=== PATIENT | female | born 1995 | race Two or more races ===

== ENCOUNTER 2016-11-27 15:24 | Inpatient (IN) | payer OTHER ==
[~2016-11-27] VITALS: Ht 162.6 cm; Wt 122.6 kg
[2016-11-27 16:00] VITALS: BP 118/59; PULSE 101; RESP 20; Ht 162.6 cm; Wt 122.6 kg
[2016-11-27 16:36] LABS: URINE BLOOD (Dip) POC Negative (NEGATIVE)
--- NOTE | 2016-11-27 16:48 | RADRPT ---
PROCEDURE: Biophysical profile CLINICAL INDICATION: distress. Spontaneous rupture of membranes. TECHNIQUE: Color and chandler-scale ultrasound images of an intrauterine gestation were obtained. COMPARISON: None FINDINGS: A single live intrauterine gestation is identified in cephalic position with an estimated hear t rate of 144 beats per minute. The placenta is located posteriorly and has a grade of II. The cer vix is closed and measures approximately 2.5 cm in length. No evidence of previa or abruption identi fied. LILLY is 8.0 cm. movement 2/2. tone 2/2. breathing movement 2/2. Qualitative AFV 2/2 Total biophysical profile 01/21 IMPRESSION: 01/21 biophysical profile. Closed cervix measuring 2.5 cm in length. RPTAT: AA .Sancho Hilton MD, MD Date Time Electronically viewed and signed by .Sancho Hilton MD, MD on 11/27/2016 16:48 .P/
[2016-11-27] MEDS ORDERED: LIDOCAINE 1% (MPF) 30 ML INJ INJ PRN (19:00)
[2016-11-27] MEDS: LACTATED RINGER'S 1,000 ML IV SCH ×2 (19:53→22:45)
--- NOTE | 2016-11-27 21:30 | HP ---
Date/Time of Note Date/Time of Note DATE: 11/27/16 TIME: 21:24 OB - History Hx of Present Free Text/Dictation November 27, 2016 Chief Complaint: Rule out PPROM : 1 Para: 0 Care: Good Care Other Concerns: 21-year-old with IUP at 36 weeks was seen to the office today and during obtaining GBS there was a concern for questionable leaking of fluid. She was sent to labor and delivery for rule out PPROM. She denies any decreased movement or vaginal bleeding or contractions. She reports some increased discharge recently. Past Family/Social History * Past Medical, Surgical, Family and Obstetric Histories reviewed from chart. OB Admission Exam Vital Signs Vital Signs Vital Signs Date Time Temp Pulse Resp B/P Pulse Ox O2 Delivery O2 Flow Rate FiO2 11/27/16 16:00 98.2 101 20 118/59 Room Air Physical Exam HEENT: WNL Abdomen: WNL Extremities: Other (Abdomen, gravid, fundal height consistent with gestational age. Sterile speculum examination , negative nitrazine negative pooling, R OM test negative. LILLY: 8. Cervical length 2.5 cm, some deep variables noted down to 60s recurrent, due to recurrent variables decision was made to admit the patient to antepartum testing for observation overnight. LILLY: 8) Cervical Dilatation: None Effacement: 0% Membranes: Intact Heart Rate: 150's Accelerations: Accelerations Present Decelerations: Variable Decelerations Varibility: Moderate Contractions on Admission: None OB Assessment/Plan Other Assessment: IUP at 36 weeks No evidence of PPROM no evidence of labor Recurrent variable decelerations Borderline LILLY. Patient will be admitted overnight for observation to antepartum service Continue Hydration. Repeat LILLY tomorrow Possible DC home tomorrow if tracing reassuring TAYLOR FAIRCHILD MD Nov 27, 2016 21:30
[2016-11-28] MEDS: LACTATED RINGER'S 1,000 ML IV SCH (06:27)
--- NOTE | 2016-11-28 12:26 | RADRPT ---
PROCEDURE: US evaluation of amniotic fluid volume. CLINICAL INDICATION: Decreased amniotic fluid volume. TECHNIQUE: Multiple sonographic images of the gravid uterus were obtained utilizing chandler-scale frandy ging. Sagittal and transverse images were obtained. The images were reviewed on a PACS workstation . LILLY was measured. COMPARISON: 11/27/2016. FINDINGS: There is a single live intrauterine . heart rate is 146 beats per minute. Position is cephalic. Placenta is posterior grade II with no abruption or previa. LILLY is 16.6 cm. (Normal = 5-20 cm.) IMPRESSION: 1. LILLY is 16.6 cm. RPTAT: QQ .Valdez Meyer MD, Date Time Electronically viewed and signed by .Valdez Meyer MD, on 11/28/2016 12:26 .R/
--- NOTE | 2016-11-28 21:26 | DS ---
Date/Time of Note Date/Time of Note DATE: 11/28/16 TIME: 21:22 Obstetrical Discharge Record Final Diagnosis Final Diagnosis: Term not delivered Other Final Diagnosis at 36+1 weeks of gestation R/O spontaneous rupture membranes cervical length 2.5 cm BPP 01/21 with LILLY 16.6 patient discharged home and instructed to follow up with her [facility] in 2 days Condition on Discharge Physical Assessment Last Vitals: patient stable and afebrile Voiding: Yes Bowel Movement: Yes Breast: Soft, non-tender Calf Tenderness: No Patient Condition: Good ANYA RODRIGUEZ MD Nov 28, 2016 21:26
== END 2016-11-28 16:25 | disposition home or self-care (01) | DRG 782 ==
LOC: OBT 15:24 → L-D 15:25 → OBT 18:10 → L-D 18:10 → OBG 11-28 00:06
PROVIDERS: ADMIT Obstetrics & Gynecology; ATTEND Obstetrics & Gynecology
DX: O42.913 Preterm premature rupture of membranes, unspecified as to length of time between rupture and onset of labor, third trimester (principal); Z3A.36 36 weeks gestation of pregnancy
CPT/HCPCS: 76816; 76817; 76818; 81003; 84112; G0463; J7120

== ENCOUNTER 2016-12-07 16:53 | Inpatient (IN) | payer OTHER ==
[~2016-12-07] VITALS: Ht 162.6 cm; Wt 123.4 kg
[2016-12-07] MEDS ORDERED: PRENAT PO (17:01)
[2016-12-07 17:03] VITALS: BP 128/77; PULSE 96; RESP 18
[2016-12-07] MEDS ORDERED: OXYTOCIN 30 UNITS/LR 500 ML IV PRN ×2 (17:30)
[2016-12-07] MEDS ORDERED: LIDOCAINE 1% (MPF) 30 ML INJ INJ PRN (17:30)
[2016-12-07] MEDS ORDERED: METHYLERGONOVINE 0.2 MG INJ IM PRN (17:30)
[2016-12-07] MEDS ORDERED: IBUPROFEN 600 MG TAB PO PRN (17:30)
[2016-12-07] MEDS ORDERED: BUTORPHANOL 2 MG INJ IV PRN ×2 (17:30)
[2016-12-07] MEDS ORDERED: MISOPROSTOL 200 MCG TAB PR PRN (17:30)
[2016-12-07] MEDS ORDERED: AMPICILLIN 2 GM/NS (PMX) 100 ML IV ONE (17:30)
[2016-12-07] MEDS ORDERED: MINERAL OIL LIGHT 10 ML VIAL TOP PRN (17:30)
[2016-12-07] MEDS ORDERED: LACTATED RINGER'S 1,000 ML IV PRN (17:30)
[2016-12-07] MEDS ORDERED: CARBOPROST 250 MCG INJ IM PRN (17:30)
[2016-12-07] MEDS ORDERED: OXYTOCIN 30 UNITS/LR 500 ML IV SCH ×2 (17:30)
[2016-12-07 17:35] LABS: ADD SCAN DIFF NO
[2016-12-07] MEDS: LACTATED RINGER'S 1,000 ML IV SCH (17:39)
--- NOTE | 2016-12-07 17:43 | RADRPT ---
AMENDMENT: 12/07/2016 6:29:36 PM Jef Siddiqui M.D Comparison: 11/28/2016 PROCEDURE: US OB. CLINICAL INDICATION: labor TECHNIQUE: Multiple sonographic images of the pelvis were obtained. The images were reviewed on a PACS workstation. COMPARISON: No prior studies are available for comparison. FINDINGS: There is a single viable intrauterine gestation. Cardiac activity is present with 142 beats per min elsa. There is a vertex presentation. Measurements were made in order to determine age. The results are as follows: BPD =9.2 cm HC =32.5 cm AC =36.2 cm FL =7.3 cm. Estimated gestational age of approximately 38 weeks 0-day. The estimated date of delivery is 12/21/2016. The EFW = 3601 grams. The placenta is right lateral in location and grade II. There is no evidence for an abruption or queenie centa previa. There are no adnexal masses. IMPRESSION: Single live intrauterine with an estimated gestational age of 38 weeks and 0-day. RPTAT: HPNM Physician Michael Date Time Electronically viewed and signed by Physician Michael on 12/07/2016 18:29 /
--- NOTE | 2016-12-07 17:44 | RADRPT ---
PROCEDURE: OB ultrasound CLINICAL INDICATION: labor TECHNIQUE: Multiple transverse and longitudinal OB images of the pelvis were obtained. The images were reviewed on a high-resolution PACS workstation. COMPARISON: 11/27/2016 FINDINGS: A single live intrauterine is seen. The presentation is vertex. The placenta is grade 2 a nd right lateral in location. No evidence of placenta abruption or previa is seen. The heart r ate is 156 beats per minute. The amniotic fluid index is 10.6 cm. movement 2 tone 2 breathing 2 Amniotic fluid 2 IMPRESSION: Biophysical profile of 01/21. RPTAT: HPNM Physician Michael Date Time Electronically viewed and signed by Physician Michael on 12/07/2016 17:44 /
[2016-12-07 17:52] LABS: BASOPHILS % 0.3 % (0.0-2.0); EOSINOPHILS # 0.1 10^3/ul (0.0-0.5); EOSINOPHILS % 0.7 % (0.0-7.0); HEMATOCRIT 38.7 % (37.0-47.0); HEMOGLOBIN 12.8 g/dl (12.0-16.0); LYMPHOCYTES # 2.7 10^3/ul (0.8-2.9); LYMPHOCYTES % 28.1 % (15.0-51.0); MEAN CORPUSCULAR HGB CONC 33.1 g/dl (32.0-37.0); MEAN CORPUSCULAR VOLUME 84.7 fl (82.0-101.0); MEAN PLATELET VOLUME 11.2 fl (7.4-10.4); MONOCYTE # 0.6 10^3/ul (0.3-0.9); MONOCYTES % 6.2 % (0.0-11.0); NEUTROPHIL # 6.1 10^3/ul (1.6-7.5); NEUTROPHILS % 64.2 % (39.0-77.0); PLATELET COUNT 280 10^3/UL (140-415); RED BLOOD COUNT 4.57 10^6/ul (4.20-5.40); RED CELL DISTRIBUTION WIDTH 14.2 % (11.5-14.5); WHITE BLOOD COUNT 9.5 10^3/ul (4.8-10.8)
[2016-12-07 17:58] LABS: ALANINE AMINOTRANSFERASE 28 IU/L (13-69); ALBUMIN 3.9 g/dl (3.3-4.9); ALBUMIN/GLOBULIN RATIO 1.44; ALKALINE PHOSPHATASE 158 IU/L (42-121); ANION GAP 17 (8-16); ASPARTATE AMINO TRANSFERASE 23 IU/L (15-46); BILIRUBIN,INDIRECT 0.1 mg/dl (0-1.1); BILIRUBIN,TOTAL 0.1 mg/dl (0.2-1.3); BLOOD UREA NITROGEN 10 mg/dl (7-20); CALCIUM 10.1 mg/dl (8.4-10.2); CARBON DIOXIDE 20 mmol/L (21-31); CHLORIDE 106 mmol/L (97-110); CREATININE 0.57 mg/dl (0.44-1.00); GLUCOSE 83 mg/dl (70-220); POTASSIUM 4.4 mmol/L (3.5-5.1); SODIUM 139 mmol/L (135-144); TOTAL PROTEIN 6.6 g/dl (6.1-8.1); URIC ACID 5.3 mg/dl (3.1-7.9)
[2016-12-07 18:03] LABS: ADD UMIC YES; UR BILIRUBIN (Dip) NEGATIVE (NEGATIVE); UR BLOOD (Dip) NEGATIVE (NEGATIVE); UR CLARITY SLIGHTLY CLOUDY (CLEAR); UR COLOR LT. YELLOW (YELLOW); UR GLUCOSE (Dip) NEGATIVE (NEGATIVE); UR KETONES (Dip) NEGATIVE (NEGATIVE); UR LEUKOCYTE ESTERASE (Dip) TRACE (NEGATIVE); UR NITRITE (Dip) NEGATIVE (NEGATIVE); UR TOTAL PROTEIN (Dip) NEGATIVE (NEGATIVE); UR UROBILINOGEN (Dip) 0.2 E.U./dL (0.1-1.0)
[2016-12-07 18:21] LABS: UR BACTERIA FEW /HPF (NONE SEEN); UR SQUAMOUS EPITHELIAL CELL MODERATE /HPF (FEW)
[2016-12-07 18:22] LABS: URINE RBCS 0-2 /HPF (0)
[2016-12-07 18:51] LABS: INR 0.89; PARTIAL THROMBOPLASTIN TIME 28.2 Sec (25.0-35.0); PT RATIO 0.9
[2016-12-07] MEDS: AMPICILLIN 1 GM/NS (PMX) 50 ML IV SCH (21:30)
[2016-12-08] MEDS: AMPICILLIN 1 GM/NS (PMX) 50 ML IV SCH ×6 (01:30→21:32)
[2016-12-08] MEDS: LACTATED RINGER'S 1,000 ML IV SCH ×3 (02:06→23:18)
[2016-12-08] MEDS ORDERED: FENTAnyl 2MCG/ML-ROPIV 0.2% 100 ML ONE (04:02)
[2016-12-08] MEDS ORDERED: NALOXONE (0.4 MG/ML) INJ IV PRN (04:30)
[2016-12-08] MEDS ORDERED: DEXTROSE 5%-LR 1,000 ML IV SCH (09:00)
--- NOTE | 2016-12-08 14:08 | HP ---
Date/Time of Note Date/Time of Note DATE: 12/08/16 TIME: 13:46 OB - History Hx of Present Free Text/Dictation 20 y/0 g/1 p/ 0 admitted to the delivery room at 37week/27 in labor mild contractions with srom as of 12/07/16 at 1600 pelvic exam on admission cx1cm 40 % vtex at -2 station category 1 fht,pt transferred to l&d for labor augmentation ,she needs antibiotic coverage ,had ob us for EFW baby weighted 3601 gm Chief Complaint: srom ,labor pain Estimated Due Date: Dec 25, 2016 : 1 Para: 0 Care: Good Care Ultrasounds: Normal mid trimester US Obstetrical Complications: None Medical Complications: None Past Family/Social History * Past Medical, Surgical, Family and Obstetric Histories reviewed from chart. Rubella: immune RPR/VDRL: Negative GBS Status: Unknown HBsAG: Negative OB Admission Exam Vital Signs Vital Signs Vital Signs Date Time Temp Pulse Resp B/P Pulse Ox O2 Delivery O2 Flow Rate FiO2 12/07/16 17:03 98.5 96 18 128/77 Room Air Physical Exam HEENT: WNL Heart: Rhythm Normal Abdomen: WNL Extremities: Normal Reflexes: Normal Cervical Dilatation: 1cm Effacement: 50% Station: -2 Membranes: Ruptured Amniotic Fluid: Clear Heart Rate: 130's Accelerations: Accelerations Present Decelerations: No Decelerations Varibility: Moderate Contractions on Admission: >10 Minutes Apart Intensity: Mild Last 72 hours Lab Results CBC & BMP 12/07/16 17:00 Liver Function Test 12/07/16 17:00 Alanine Aminotransferase (ALT/SGPT) 28 Albumin 3.9 Alkaline Phosphatase 158 H Aspartate Amino Transf (AST/SGOT) 23 Direct Bilirubin 0.00 Total Protein 6.6 OB Assessment/Plan Reason for admission: rupture of membranes Plan: Other (labor augmentation) Induction Method: per Pitocin Protocol NALINI ZELAYA MD Dec 08, 2016 14:04
[2016-12-08] MEDS: FENTAnyl 2MCG/ML-ROPIV 0.2% 100 ML BAG EPI SCH ×2 (16:17→22:05)
[2016-12-08] MEDS ORDERED: ONDANSETRON 4 MG INJ IV PRN (21:00)
[2016-12-08] MEDS ORDERED: MINERAL OIL LIGHT 10 ML VIAL TOP PRN (21:00)
[2016-12-09] MEDS: AMPICILLIN 1 GM/NS (PMX) 50 ML IV SCH (01:33)
[2016-12-09] MEDS ORDERED: CEFAZOLIN 2 GM/50 ML (PMX) 50 ML IV SCH (02:00)
--- NOTE | 2016-12-09 02:00 | HP ---
Date/Time of Note Date/Time of Note DATE: 12/09/16 TIME: 01:53 OB - History Hx of Present Free Text/Dictation 21 YO G1 with IUP at 37 weeks who presented with SROM. she progressed to complete dilation. she pushed for about 3 hours, but vertex did not move at all. she remained at -1 station. she is exhausted and unable to push any more. she would like to be delivered by . Care: Good Care Ultrasounds: No ultrasounds Obstetrical Complications: Other (BMI is 47) Medical Complications: Other (BMI is 47) Past Family/Social History * Past Medical, Surgical, Family and Obstetric Histories reviewed from chart. Her BMI is 47 OB Admission Exam Vital Signs Vital Signs Vital Signs Date Time Temp Pulse Resp B/P Pulse Ox O2 Delivery O2 Flow Rate FiO2 12/07/16 17:03 98.5 96 18 128/77 Room Air Physical Exam HEENT: WNL Heart: Rhythm Normal Lungs: Clear, Equal Abdomen: Abnormal (Obese, soft, gravid) Extremities: Normal Reflexes: Normal Cervical Dilatation: 10cm Effacement: 100% Station: -1 Membranes: Ruptured Amniotic Fluid: Clear Last 72 hours Lab Results CBC & BMP 12/07/16 17:00 Liver Function Test 12/07/16 17:00 Alanine Aminotransferase (ALT/SGPT) 28 Albumin 3.9 Alkaline Phosphatase 158 H Aspartate Amino Transf (AST/SGOT) 23 Direct Bilirubin 0.00 Total Protein 6.6 OB Assessment/Plan Other Assessment: arrest of descent at 10 cm of dilation. Morbid obesity with BMI 47 Plan: Section Other plan: risks and benefits d/w pt. risks of c/s including bu not limited to infection, bleeding, damage to other organs, blood transfusion d/w patient. I expalined to patient that she is at higher risk due to BMI 47. All her questions answered and informed consent obtained. OSCAR PUGH MD Dec 09, 2016 02:00
[2016-12-09] MEDS ORDERED: morphine SULFATE/PF (10 MG/10 ML) INJ ONE (02:01)
[2016-12-09] MEDS ORDERED: METOCLOPRAMIDE 10 MG INJ ONE (02:01)
[2016-12-09] MEDS ORDERED: KETOROLAC 30 MG INJ ONE (02:01)
[2016-12-09] MEDS ORDERED: LIDOCAINE 2%/EPI 30 ML INJ ONE (02:03)
[2016-12-09] MEDS ORDERED: CEFAZOLIN 1 GM INJ ONE (02:22)
[2016-12-09] MEDS ORDERED: PHENYLephrine (100 MCG/ML) 5ML SYG ONE (02:22)
[2016-12-09] MEDS ORDERED: METOCLOPRAMIDE 10 MG INJ IV PRN (03:00)
[2016-12-09] MEDS ORDERED: MEPERIDINE 25 MG INJ IV PRN (03:00)
[2016-12-09] MEDS ORDERED: DIPHENHYDRAMINE 50 MG INJ IV PRN ×2 (03:00→03:30)
[2016-12-09] MEDS ORDERED: ONDANSETRON 4 MG INJ IV PRN ×2 (03:00→03:30)
[2016-12-09] MEDS ORDERED: HYDROmorphONE (0.2 MG/ML) 10ML SYG IV PRN ×3 (03:00)
[2016-12-09] MEDS ORDERED: OXYTOCIN 30 UNITS/LR 500 ML IV ONE (03:08)
--- NOTE | 2016-12-09 03:20 | OPR ---
Operative Report Planned Procedure Free Text/Dictation DATE OF OPERATION: PREOPERATIVE DIAGNOSES: 1. Term 2. Arrest of Dilation POSTOPERATIVE DIAGNOSES: 1. Same OPERATION PERFORMED: Primary delivery SURGEON: Katia Cabrera MD MACHINE OPERATOR: Dr. Goldstein ESTIMATED BLOOD LOSS: 1200 mL. COMPLICATIONS: None. The risks, benefits, indications, alternatives of procedure including, but not limited to risk of infection, bleeding, damage to other organs, bowel, bladder, hernia formation, scar formation, possibility of blood transfusions were discussed with the patient. She was allowed to ask questions. All her questions were answered. Informed consent was obtained. DESCRIPTION OF PROCEDURE: She was taken to the operating room. Spinal anesthesia was induced. She was prepped and draped in the usual sterile fashion. Surgical time out one. Anesthesia was tested to be adequate. With permission from anesthesiologist, a knife was used to make a Pfannenstiel skin incision. The incision was taken down in layers. The fascia was cut, undermined and from the underlying muscle using sharp and blunt dissection. All the bleeders were cauterized. Peritoneum was entered bluntly. A low transverse incision was developed over the uterus. Amniotic fluid was clear and adequate. A viable in vertex presentation was delivered without any difficulty. The cord was clamped and cut, handed to awaiting team. Placenta was then delivered. Uterus was exteriorized, wrapped around a moist lap. Inside uterus was cleaned using a dry lap. All residual membranes were removed. There was an extension of the uterine incision toward the cervix on the left corner of the incision. Bladder flap was developed with blunt dissection and bladder was pushed down. the edge of the extension of the uterine incision was grasped and suture ligated and I continued toward the uterine incision. The uterine incision was then closed using #1 Monocryl in 2 layers. The uterus was inserted back inside the abdominal cavity. Irrigation was done carefully. Careful evaluation of the uterine incision revealed no further bleeding. The tubal ligation sites were evaluated carefully. There was no bleeding. The peritoneum and rectus muscles and fascia were evaluated. All bleeders cauterized. Peritoneum was closed using 2-0 Monocryl. At this time, the count was correct. Rectus fascia was reapproximated using 2-0 Monocryl. Rectus fascia was closed using #1 Vicryl. Subcutaneous tissue was cleaned and irrigated. All bleeders cauterized and the skin closed using 4-0 Monocryl. All counts correct. Procedure date Dec 09, 2016 Anesthesia Type: spinal Post-Procedure Specimen removed: No Complications: None Pt Condition post procedure: stable Disposition: PACU Physician Certification I, the undersigned physician, hereby certify that I have discussed the procedure described in this consent form with this patient (or the patient's legal hotel services sales representative), including: * The risk and benefits of the procedure; * Any adverse reactions that may reasonably be expected to occur; * Any alternative efficacious methods of treatment which may be medically viable ; * The potential problems that may occur during recuperation; * Potential for blood transfusion and associated risks/benefits; and * Any research or economic interest I may have regarding this treatment. I further certify that the patient/legally responsible person was encouraged to ask question and that all questions were answered. KATIA CABRERA MD Dec 09, 2016 03:20
[2016-12-09] MEDS ORDERED: LANOLIN 7 GM TUBE TOP PRN (03:30)
[2016-12-09] MEDS ORDERED: NALOXONE (0.4 MG/ML) INJ IV PRN (03:30)
[2016-12-09] MEDS ORDERED: OXYCODONE/ACETAMINOPHEN (5/325) TAB PO PRN (03:30)
[2016-12-09] MEDS ORDERED: NA PHOSPHATE/BIPHOS 133 ML ENEMA PR PRN (03:30)
[2016-12-09] MEDS ORDERED: HYDROmorphONE 1 MG/ML SYG IV PRN ×3 (03:30)
[2016-12-09] MEDS ORDERED: MISOPROSTOL 200 MCG TAB PR PRN (03:30)
[2016-12-09] MEDS: IBUPROFEN 600 MG TAB PO SCH ×3 (06:00→18:00)
[2016-12-09 06:35] VITALS: BP 151/74; PULSE 101; RESP 18
[2016-12-09 07:10] VITALS: BP 130/77; PULSE 93; RESP 16
[2016-12-09 08:00] VITALS: BP 137/77; PULSE 86; RESP 16
[2016-12-09] MEDS: SENNA/DOCUSATE NA (8.6MG/50MG) TAB PO SCH ×2 (08:45→20:18)
[2016-12-09] MEDS: PIPER-TAZO 3.375 GM IV (PMX) 100 ML IVPB SCH ×2 (08:54→16:46)
[2016-12-09] MEDS: LACTATED RINGER'S 1,000 ML IV SCH ×6 (08:55→20:47)
[2016-12-09 11:35] VITALS: BP 136/81; PULSE 109; RESP 16
[2016-12-09] MEDS: KETOROLAC 30 MG INJ IV PRN ×2 (11:45→20:18)
[2016-12-09 16:30] VITALS: BP 137/82; PULSE 100; RESP 14
[2016-12-09 20:00] VITALS: BP 127/70; PULSE 105; RESP 20
[2016-12-10] VITALS: BP 133/81; PULSE 104; RESP 18
[2016-12-10] MEDS: LACTATED RINGER'S 1,000 ML IV SCH ×6 (01:21→19:12)
[2016-12-10] MEDS: PIPER-TAZO 3.375 GM IV (PMX) 100 ML IVPB SCH ×5 (01:26→18:20)
[2016-12-10] MEDS: OXYCODONE/ACETAMINOPHEN (5/325) TAB PO PRN ×3 (03:43→22:48)
[2016-12-10 04:00] VITALS: BP 138/95; PULSE 114; RESP 18
[2016-12-10] MEDS: IBUPROFEN 600 MG TAB PO SCH ×4 (06:00→17:37)
--- NOTE | 2016-12-10 07:07 | PN ---
Date/Time of Note Date/Time of Note DATE: 12/09/16 TIME: 10:05 Anesthesia note: A 21 year female s/p epidural duramorph POD # 1 is doing fine.no headache, n/v, pain, itching, back apin. back s clean. Assessment/Plan VTE Prophylaxis VTE Prophylaxis Intervention: SCD's Lines/Catheters IV Catheter Type (from Nrsg): Peripheral IV Exam/Review of Systems Vital Signs Vitals Vital Signs Date Time Temp Pulse Resp B/P Pulse Ox O2 Delivery O2 Flow Rate FiO2 12/10/16 04:00 98.6 114 18 138/95 Room Air 12/10/16 03:35 95 21 Intake and Output 12/09/16 12/09/16 12/10/16 14:59 22:59 06:59 Intake Total 872 ml 1525 ml 1025 ml Output Total 550 ml 1050 ml 775 ml Balance 322 ml 475 ml 250 ml Results Result Diagram: 12/07/16 1700 12/07/16 1700 Medications Medications Current Medications Lactated Ringer's 1,000 ml @ 125 mls/hr Q8H IV Last administered on 12/09/16 08:55; Admin Dose 125 MLS/HR; Start 12/07/16 at 17:21 Oxytocin/Lactated Ringer's 500 ml @ 0 mls/hr TITRATE IV Last administered on 18:13; Admin Dose 1 MLS/HR; Start 12/07/16 at 17:30 Butorphanol Tartrate (Stadol) 1 mg Q2H PRN IV PAIN; Start 12/07/16 at 17:30 Butorphanol Tartrate (Stadol) 2 mg Q2H PRN IV PAIN Last administered on 23:08; Admin Dose 2 MG; Start 12/07/16 at 17:30 Lidocaine 30 ml 30 ml ONCE PRN INJ EPISIOTOMY/TEARING; Start 12/07/16 at 17:30 Oxytocin/Lactated Ringer's 500 ml @ 125 mls/hr ONCE IV ; Start 12/07/16 at 17: 30 Ibuprofen 600 mg 600 mg ONCE PRN PO Mild Pain (Pain Score 1-3); Start 12/07/16 at 17:30 Lactated Ringer's 1,000 ml @ 2,000 mls/hr Q30M PRN IV PRE-EPIDURAL BOLUS Last administered on 12/08/16 07:43; Admin Dose 2,000 MLS/HR; Start 12/07/16 at 17: 30 Oxytocin/Lactated Ringer's 500 ml @ 0 mls/hr ONCE PRN IV For Hemorrhage Management; Start 12/07/16 at 17:30 Methylergonovine Maleate (Methergine) 0.2 mg ONCE PRN IM VAGINAL BLEEDING; Start 12/07/16 at 17:30 Carboprost Tromethamine (Hemabate) 250 mcg ONCE PRN IM VAGINAL BLEEDING; Start 12/07/16 at 17:30 Misoprostol (Cytotec) 1,000 mcg ONCE PRN [place] VAGINAL BLEEDING Last administered on 12/09/16 06:10; Admin Dose 1,000 MCG; Start 12/07/16 at 17:30 Naloxone HCl (Narcan) 0.2 mg Q2M PRN IV FOR RESP RATE 8 OR LESS; Start at 04:30 Ondansetron HCl 4 mg 4 mg Q4H PRN IV NAUSEA AND/OR VOMITING Last administered on 12/08/16 21:20; Admin Dose 4 MG; Start 12/08/16 at 21:00 Piperacillin Sod/ Tazobactam Sod 100 ml @ 200 mls/hr Q6 IVPB Last administered on 12/10/16 06:00; Admin Dose 200 MLS/HR; Start 12/09/16 at 06:00 Lactated Ringer's (Lr) 1,000 ml @ 125 mls/hr Q8H IV Last administered on 20:47; Admin Dose 125 MLS/HR; Start 12/09/16 at 03:12 Oxycodone/ Acetaminophen (Percocet (5/ 325)) 1 tab Q4H PRN PO PAIN LEVEL 4-6; Start 12/09/16 at 03:30 Oxycodone/ Acetaminophen (Percocet (5/ 325)) 2 tab Q4H PRN PO PAIN LEVEL 7-10 Last administered on 12/10/16 03:43; Admin Dose 2 TAB; Start 12/09/16 at 03:30 Ibuprofen (Motrin) 600 mg Q6 PO Last administered on 12/10/16 06:00; Admin Dose 600 MG; Start 12/09/16 at 06:00 Simethicone (Mylicon) 160 mg Q8H PRN PO DISTENSION/GAS/BLOATING; Start at 03:30 Senna/Docusate Sodium (Senokot-S) 1 tab BID PO Last administered on 12/09/16t 20:18; Admin Dose 1 TAB; Start 12/09/16 at 09:00 Sodium Biphosphate/ Sodium Phosphate (Fleet Enema) 133 ml DAILY PRN [place] CONSTIPATION; Start 12/09/16 at 03:30 Diphtheria/ Tetanus/Acell Pertussis (Adacel) 0.5 ml ONCE ONCE IM* ; Start at 09:00; Stop 12/12/16 at 09:01 Measles/Mumps/ Rubella Vaccine Live (Mmr Ii Vaccine) 0.5 ml ONCE ONCE SC* ; Start 12/12/16 at 09:00; Stop 12/12/16 at 09:01 Misoprostol (Cytotec) 1,000 mcg ONCE PRN [place] VAGINAL BLEEDING; Start 12/09/16 at 03:30 SCOT TAM MD Dec 10, 2016 07:07
[2016-12-10 07:45] LABS: ADD SCAN DIFF NO
[2016-12-10 07:58] LABS: BASOPHILS % 0.2 % (0.0-2.0); EOSINOPHILS # 0.1 10^3/ul (0.0-0.5); EOSINOPHILS % 0.5 % (0.0-7.0); HEMATOCRIT 29.3 % (37.0-47.0); HEMOGLOBIN 9.6 g/dl (12.0-16.0); LYMPHOCYTES # 1.9 10^3/ul (0.8-2.9); LYMPHOCYTES % 12.5 % (15.0-51.0); MEAN CORPUSCULAR HEMOGLOBIN 28.2 pg (29.0-33.0); MEAN CORPUSCULAR HGB CONC 32.8 g/dl (32.0-37.0); MEAN CORPUSCULAR VOLUME 85.9 fl (82.0-101.0); MEAN PLATELET VOLUME 10.9 fl (7.4-10.4); MONOCYTE # 1.2 10^3/ul (0.3-0.9); MONOCYTES % 8.3 % (0.0-11.0); NEUTROPHIL # 11.6 10^3/ul (1.6-7.5); NEUTROPHILS % 77.8 % (39.0-77.0); PLATELET COUNT 219 10^3/UL (140-415); RED BLOOD COUNT 3.41 10^6/ul (4.20-5.40); RED CELL DISTRIBUTION WIDTH 14.6 % (11.5-14.5)
[2016-12-10 08:00] VITALS: BP 113/74; PULSE 100; RESP 18
[2016-12-10] MEDS: SENNA/DOCUSATE NA (8.6MG/50MG) TAB PO SCH ×2 (09:23→21:07)
[2016-12-10 16:00] VITALS: BP 106/61; PULSE 95; RESP 18
[2016-12-10 20:00] VITALS: BP 119/67; PULSE 103; RESP 20
[2016-12-11] MEDS: PIPER-TAZO 3.375 GM IV (PMX) 100 ML IVPB SCH ×2 (00:31→06:28)
[2016-12-11] MEDS: IBUPROFEN 600 MG TAB PO SCH ×4 (00:31→17:36)
[2016-12-11] MEDS: LACTATED RINGER'S 1,000 ML IV SCH ×2 (00:32→03:12)
[2016-12-11 04:00] VITALS: BP 120/69; PULSE 96; RESP 40
[2016-12-11] MEDS: SENNA/DOCUSATE NA (8.6MG/50MG) TAB PO SCH ×2 (08:06→21:10)
[2016-12-11] MEDS: OXYCODONE/ACETAMINOPHEN (5/325) TAB PO PRN ×3 (08:06→23:11)
[2016-12-11 08:10] VITALS: BP 137/82; PULSE 97; RESP 18
--- NOTE | 2016-12-11 09:03 | PN ---
Date/Time of Note Date/Time of Note DATE: 12/11/16 TIME: 09:02 OB Subjective Subjective Subjective Post day 2 Afebrile vital signs stable abdomen soft bowel sounds present able to pass flatus incision dry ambulation recommended enema ordered NALINI ZELAYA MD Dec 11, 2016 09:03
[2016-12-11] MEDS ORDERED: NA PHOSPHATE/BIPHOS 133 ML ENEMA PR ONE (10:00)
[2016-12-11 16:00] VITALS: BP 117/72; PULSE 95; RESP 18
[2016-12-11 19:45] VITALS: BP 132/75; PULSE 95; RESP 18
[2016-12-12] MEDS: IBUPROFEN 600 MG TAB PO SCH ×3 (00:18→12:26)
[2016-12-12 03:30] VITALS: BP 111/71; PULSE 84; RESP 18
[2016-12-12 08:30] VITALS: BP 137/82; PULSE 85; RESP 14
[2016-12-12] MEDS ORDERED: DIPHTH/TET/ACEL PERTUSS (ADULT) 0.5 ML VIAL IM* ONE (09:00)
[2016-12-12] MEDS ORDERED: MEASLES,MUMPS,RUBELLA VACCINE INJ SC* ONE (09:00)
[2016-12-12] MEDS: SENNA/DOCUSATE NA (8.6MG/50MG) TAB PO SCH (09:40)
--- NOTE | 2016-12-12 12:27 | DS ---
Date/Time of Note Date/Time of Note DATE: 12/12/16 TIME: 12:25 Discharge Summary Admission/Discharge Info Admit Date/Time Dec 07, 2016 at 17:20 Discharge Date/Time December 12, 2016 at 1220 Discharge Diagnosis Term primary section due to the arrest of cervical dilatation Patient Condition: Good Procedures Primary Hx of Present Illness Term failure to progress primary Hospital Course Satisfactory uneventful Home Meds Reported Medications Multivit/Min/Fol Ac/Iron/Pren* ( S*) 1 Tab Tab, 1 TAB PO DAILY, TAB 12/07/16 Follow-up Plan Appointment clinic in 1 week for check Primary Care Provider [facility] Time spent on discharge: < 30 minutes NALINI ZELAYA MD Dec 12, 2016 12:27
== END 2016-12-12 15:34 | disposition home or self-care (01) | DRG 765 ==
LOC: OBT 16:53 → L-D 16:54 → OBT 17:20 → L-D 12-09 02:01 → PP1 12-09 06:47
PROVIDERS: ADMIT Obstetrics & Gynecology; ATTEND Obstetrics & Gynecology
PROC: 10D00Z1 Extraction of Products of Conception, Low, Open Approach (ICD-10-PCS; principal; 2016-12-09)
DX: O66.9 Obstructed labor, unspecified (principal); Z68.42 Body mass index [BMI] 45.0-49.9, adult; Z3A.37 37 weeks gestation of pregnancy; Z37.0 Single live birth; O99.213 Obesity complicating pregnancy, third trimester; E66.01 Morbid (severe) obesity due to excess calories; O62.1 Secondary uterine inertia
CPT/HCPCS: 62319; 76815; 76818; 80053; 81001; 84112; 84560; 85025; 85384; 85610; 85730; 86592; 86900; 86901; 87340; 90715; 94760; 99464; G0463; J0290; J0595; J0690; J1170; J1885; J2210; J2274; J2370; J2405; J2543; J2590; J2765; J3010; J7120; J7121

== ENCOUNTER 2018-12-13 06:35 | Emergency (ER) | payer MEDICAID, OTHER ==
[~2018-12-13] VITALS: Ht 157.5 cm; Wt 89.0 kg
[~2018-12-13 06:35] MED LIST: PRENAT PO
[2018-12-13 06:38] VITALS: BP 152/78; PULSE 78; RESP 18; Ht 157.5 cm; Wt 89.0 kg
[2018-12-13] MEDS ORDERED: ONDANSETRON (ODT) 4 MG TAB ODT STA (07:21)
[2018-12-13] MEDS ORDERED: PROMETHAZINE/CODEINE 5ML CUP PO ONE (07:30)
--- NOTE | 2018-12-13 08:03 | ERD ---
ER Documentation Chief Complaint Chief Complaint cough,runny nose, vomiting , body aches x 5 days HPI 23-year-old female presents complaint of cough, runny nose, posttussive emesis, body aches for the past 5 days. Patient has had a fever of 101. Patient states that she has been taking antipyretics as well as Robitussin and NyQuil. Denies headache, SOB, chest pain, wheezing, dyspnea, stridor,sore throat, inability to swallow, drooling, rash, neck stiffness, photophobia, abdominal pain, nausea, vomiting, diarrhea, dysuria, hematuria, night sweats, recent weight loss, fatigue. ROS All systems reviewed and are negative except as per history of present illness. Medications Home Meds Active Scripts Ondansetron (Ondansetron Odt) 8 Mg Tab.rapdis, 8 MG PO Q6H PRN for NAUSEA AND/OR VOMITING, #10 TAB Prov:STEFFENDAECHARLYADRIANA 12/13/18 Promethazine HCl/Codeine (Prometh-Codein 6.25-10 mg/5 ml) 5 Ml Syrup, 5 ML PO Q4, #4 OZ Prov:STEFFENDAEADRIANA PARKS 12/13/18 Ibuprofen* (Motrin*) 600 Mg Tab, 600 MG PO Q6H PRN for PAIN AND OR ELEVATED TEMP, #30 TAB Prov:ADRIANA QUINTEROS 12/13/18 Reported Medications Multivit/Min/Fol Ac/Iron/Pren* ( S*) 1 Tab Tab, 1 TAB PO DAILY, TAB 12/07/16 Allergies Allergies: Coded Allergies: No Known Allergy (Unverified , 11/27/16) PMhx/Soc Medical and Surgical Hx: pt denies Medical Hx, pt denies Surgical Hx Hx Alcohol Use: No Hx Substance Use: No Hx Tobacco Use: No FmHx Family History: No diabetes, No coronary disease, No other Physical Exam Vitals Vital Signs Date Temp Pulse Resp B/P (MAP) Pulse Ox O2 O2 Flow FiO2 Time Delivery Rate 12/13/18 99.9 78 18 152/78 99 06:38 (102) Physical Exam Const: No acute distress Head: Atraumatic Eyes: Normal Conjunctiva ENT: Normal External Ears, Nose and Mouth. Neck: Full range of motion. No meningismus. Resp: Clear to auscultation bilaterally Cardio: Regular rate and rhythm, no murmurs Abd: Soft, non tender, non distended. Normal bowel sounds Skin: No petechiae or rashes Back: No midline or flank tenderness Ext: No cyanosis, or edema Neur: Awake and alert Psych: Normal Mood and Affect Results 24 hrs Laboratory Tests Test 12/13/18 07:41 POC Beta HCG, Qualitative NEGATIVE Current Medications Medications Dose Sig/Nguyễn Start Time Status Last (Trade) Ordered Route PRN Stop Time Admin Dose Reason Admin Ondansetron 4 mg ONCE STAT 12/13/18 DC 12/13/18 HCl (Zofran ODT 07:21 07:39 Odt) 12/13/18 07:23 Promethazine 10 ml ONCE ONCE 12/13/18 DC 12/13/18 HCl/ PO 07:30 07:44 Codeine 12/13/18 07:31 (Phenergan/ Codeine) Procedures/MDM DIAGNOSTIC IMAGING REPORT Patient: MARIZA NEGRETE : 1995 Age: 23 Sex: F MR #: [id number] DOS: 12/13/18720 Ordering MD: ADRIANA QUINTEROS Location: [facility] Room/Bed: PROCEDURE: XR Chest. CLINICAL INDICATION: Cough TECHNIQUE: Frontal chest x-ray was obtained. COMPARISON: None. FINDINGS: The heart is not enlarged. Mediastinum is not widened. No hilar masses seen. Lungs are clear of any infiltrates. There is no effusion or pneumothorax. The osseous structures appear normal. IMPRESSION: No evidence for active cardiopulmonary disease. .Osvaldo Izaguirre MD, MD Date Time Electronically viewed and signed by .Osvaldo Izaguirre MD, MD on 12/13/2018 08:37 .A/ CC: ADRIANA QUINTEROS [phone] MDM: Chest x-ray was within normal limits. I have low suspicion for strep throat based on history and exam findings, as well as patient not meeting centor criteria for rapid strep testing. I have low suspicion for bacterial sinusitis, pneumonia, tuberculosis, meningitis, pneumothorax, PE, aspirated foreign body, respiratory distress, acute heart failure or other life threatening etiology based on patient history and exam findings. Most likely etiology is viral URI and no further tests are necessary. Patient given rx for promethazine with codeine as well as Zofran for vomiting and ibuprofen. Patient advised to rest and stay well hydrated. At time of discharge patient's vitals within normal limits and patient is in no signs of any type of respiratory distress. at this time, patient is stable for discharge and outpatient management. I have instructed the patient to follow-up with his/her primary care physician in 1-2 days. I have discussed with the patient the possibility of needing to see a specialist for further workup and imaging studies if symptoms persist. I have instructed the patient to promptly return to the ER for any new or worsening symptoms including but not limited to increased pain, fever, nausea, vomiting, weakness or LOC. The patient and/or family expressed understanding of and agreement with this plan. All questions were answered. Home care instructions were provided. DISCLAIMER: Inadvertent spelling and grammatical errors are likely due to EHR/dictation software use and do not reflect on the overall quality of patient care. Also, pl ease note that the electronic time recorded on this note does not necessarily reflect the actual time of the patient encounter. Departure Diagnosis: Primary Impression: Upper respiratory infection Condition: Stable ADRIANA QUINTEROS Dec 13, 2018 08:00
[2018-12-13] MEDS ORDERED: PROM5SYR2 PO (08:54)
[2018-12-13] MEDS ORDERED: IBUP-1542 PO (08:54)
[2018-12-13] MEDS ORDERED: ONDA8TAB14 PO (08:55)
== END 2018-12-13 09:04 | disposition home or self-care (01) ==
LOC: FTE 06:35
DX: J06.9 Acute upper respiratory infection, unspecified (principal)
CPT/HCPCS: 71045; 81025